=== PATIENT | female | born 1955 | race Caucasian/White ===

== ENCOUNTER 2019-01-11 18:12 | Emergency (ER) | payer OTHER, MEDICAID ==
[~2019-01-11] VITALS: Ht 167.6 cm; Wt 82.1 kg
[2019-01-11 18:23] VITALS: Ht 167.6 cm; Wt 82.1 kg
[2019-01-11 20:17] VITALS: BP 124/83
== END 2019-01-11 20:17 | disposition home or self-care (01) ==
LOC: ED 18:12
DX: L95.9 Vasculitis limited to the skin, unspecified (principal); Z98.890 Other specified postprocedural states